=== PATIENT | male | born 1980 | race Caucasian/White ===

== ENCOUNTER 2018-01-21 06:39 | Day surgery (SDC) | payer OTHER ==
[~2018-01-21] VITALS: Ht 182.9 cm; Wt 160.0 kg
[~2018-01-21 06:39] MED LIST: AMLO10 PO; Aldactone25 MG PO; Amiodarone HCl400 MG PO; CARV25 PO; Cardizem Cd180 MG PO; DIGOX250 MCG PO; DILT120 PO; Duoneb 2.5-0.5 M3 ML INH; GUAI1200ER PO; INSU100I6; INSULANPEN SC; K-Dur20 MEQ PO; LOSA50 PO; LOSARTAN POTAS100 MG PO; Lasix40 MG PO; METF500 PO; METO100ER PO; METO50 PO; Norvasc5 MG PO; POTCHL20ER PO; Pedi-Dri 100,0060 GM TOP; SPIR25 PO; TOPROL XL200 MG PO; TORSE20 PO; Toprol Xl200 MG PO; XARELTO20 MG PO; ZESTORETIC 20-121 EA
[2018-01-21 07:58] LABS: Anion Gap 7 mmol/L (6-16); Blood Urea Nitrogen 16 mg/dL (8-24); Bun/Creatinine Ratio 17.6 (12.0-20.0); CO2, Blood 27 mmol/L (21-32); Calcium, Blood 8.1 mg/dL (8.5-10.1); Chloride, Blood 103 mmol/L (98-108); Creatinine, Blood 0.91 mg/dL (0.60-1.20); Glomerular Filtration Rate >60 (60-); Glucose, Blood 206 mg/dL (70-99); Potassium, Blood 3.7 mmol/L (3.5-5.5); Sodium, Blood 137 mmol/L (136-145)
[2018-06-23] MEDS ORDERED: SPIR25 PO (19:50)
== END 2018-01-21 22:56 | disposition home or self-care (01) ==
LOC: MHTC 06:39
PROVIDERS: Internal Medicine Clinical Cardiac Electrophysiology
PROC: 5A2204Z Restoration of Cardiac Rhythm, Single (ICD-10-PCS; principal; 2018-01-21)
DX: I48.1 Persistent atrial fibrillation (principal); I11.0 Hypertensive heart disease with heart failure; I50.9 Heart failure, unspecified; E66.01 Morbid (severe) obesity due to excess calories; Z87.891 Personal history of nicotine dependence
CPT/HCPCS: 80048; 83735; 92960; 93005; 93010; 99152; J7030

== ENCOUNTER 2018-04-27 23:12 | Emergency (ER) | payer OTHER ==
[~2018-04-27] VITALS: Ht 180.3 cm; Wt 163.3 kg
[~2018-04-27 23:12] MED LIST changes: +INSULANPEN; -INSULANPEN SC
== END 2018-04-28 01:24 | disposition home or self-care (01) ==
LOC: ER 23:12
DX: S81.812A Laceration without foreign body, left lower leg, initial encounter (principal); W25.XXXA Contact with sharp glass, initial encounter; Z79.4 Long term (current) use of insulin; Z79.899 Other long term (current) drug therapy; I48.91 Unspecified atrial fibrillation; E11.9 Type 2 diabetes mellitus without complications
CPT/HCPCS: 99282

== ENCOUNTER 2019-02-27 15:59 | Inpatient (IN) | payer OTHER ==
[~2019-02-27] VITALS: Ht 180.3 cm; Wt 174.9 kg
[~2019-02-27 15:59] MED LIST changes: -INSU100I6; +INSU100I6 SC; -INSULANPEN; +INSULANPEN SC
[2019-02-27 16:34] LABS: Source, Urine Voided
[2019-02-27 16:37] LABS: Appearance, Urine Clear (Clear); Bilirubin, Urine Neg (Neg); Blood, Urine Neg (Neg); Color, Urine Yellow (P-Yellow); Glucose Qualitative, Urine 4+ (Neg); Ketones, Urine Neg (Neg); Leukocyte Esterase, Urine Neg (Neg); Nitrite, Urine Neg (Neg); Protein, Urine 2+ (Neg); Urobilinogen, Urine NORM (Normal)
[2019-02-27 16:39] LABS: BASOPHILS ABSOLUTE AUTO 0.05 K/mm3 (0.00-0.23); BASOPHILS PERCENT AUTO 1 % (0-2); EOSINOPHILS ABSOLUTE AUTO 0.03 K/mm3 (0.00-0.68); EOSINOPHILS PERCENT AUTO 0 % (0-6); Hematocrit 43.5 % (37.0-53.0); Hemoglobin 14.6 g/dL (13.5-17.5); IMMATURE GRAN ABSOLUTE AUTO 0.05 K/mm3 (0.00-0.10); IMMATURE GRAN PERCENT AUTO 1 % (0-1); LYMPHOCYTES ABSOLUTE AUTO 1.03 K/mm3 (0.84-5.20); LYMPHOCYTES PERCENT AUTO 10 % (21-46); MONOCYTES ABSOLUTE AUTO 0.92 K/mm3 (0.16-1.47); MONOCYTES PERCENT AUTO 9 % (4-13); Mean Corpuscular HGB 31.2 pg (26.0-34.0); Mean Corpuscular HGB Conc 33.6 g/dL (31.5-36.5); Mean Corpuscular Volume 93 fL (80-100); Mean Platelet Volume 12.6 fL (9.1-12.4); NEUTROPHILS ABSOLUTE AUTO 8.23 K/mm3 (1.96-9.15); NEUTROPHILS PERCENT AUTO 80 % (41-73); Platelet Count 232 K/mm3 (150-400); RDW Coefficient Variation 13.6 % (11.7-14.2); RDW Standard Deviation 46.2 fL (35.1-46.3); Red Blood Cell Count 4.68 M/mm3 (4.30-5.90); White Blood Cell Count 10.31 K/mm3 (4.00-11.30)
[2019-02-27 16:53] LABS: Alanine Aminotransfer (ALT/SGP 44 U/L (12-78); Albumin, Blood 3.1 g/dL (3.4-5.0); Albumin/Globulin Ratio 0.7 (0.8-1.8); Alk Phos 85 U/L (50-136); Anion Gap 8 mmol/L (6-16); Aspartate Aminotrans (AST/SGOT 47 U/L (12-37); Bilirubin, Total 0.8 mg/dL (0.1-1.0); Blood Urea Nitrogen 14 mg/dL (8-24); Bun/Creatinine Ratio 15.2 (12.0-20.0); CO2, Blood 28 mmol/L (21-32); Calcium, Blood 8.1 mg/dL (8.5-10.1); Chloride, Blood 98 mmol/L (98-108); Creatinine, Blood 0.92 mg/dL (0.60-1.20); Globulin, Blood 4.4 g/dL (2.2-4.0); Glomerular Filtration Rate >60 (60-); Glucose, Blood 306 mg/dL (70-99); Potassium, Blood 4.2 mmol/L (3.5-5.5); Sodium, Blood 134 mmol/L (136-145); Total Protein, Blood 7.5 g/dL (6.4-8.2); Troponin I 0.022 ng/mL (0.000-0.040)
[2019-02-27 16:54] LABS: Bacteria Not Seen /hpf; Red Blood Cells, Urine Rare /hpf (0-2); Squamous Epithelial Cells Few /hpf (Few); White Blood Cells, Urine Not Seen /hpf (0-5)
[2019-02-27 17:50] LABS: U Amphetamine Screen Not Detected; U Barbituate Screen Not Detected; U Benzodiazapine Screen Not Detected; U Buprenorphine Screen Not Detected; U Cannabinoids Screen Not Detected; U Cocaine Screen Not Detected; U Methadone Screen Not Detected; U Methamphetamine Screen Not Detected; U Opiates Screen Not Detected; U Oxycodone Screen Not Detected; U Phencyclidine Screen Not Detected; U Propoxyphene Screen Not Detected
[2019-02-27 18:02] LABS: Influenza A Negative (NEGATIVE); Influenza B Negative (NEGATIVE)
[2019-02-27] MEDS ORDERED: ALBU3IS INH (19:12)
--- NOTE | 2019-02-27 20:55 | NUR ---
PT ARRIVAL. PT ARRIVED ON UNIT VIA GURNEY PT WAS ABLE TO SELF TRANSFER FROM [facility] TO BED. PT WAS ADMITTED DUE TO AFIB RVR, PT IS CURRENTLY ON A CARDIZEM GTT AT 10MG/HR, HIS HR IS 107 PER ATHLETIC COORDINATOR, PT DENIES ANY CHEST PAIN/PRESSURE. TELE WAS PLACED, AFIB AT 107, PT'S BP 152/110, 1+ EDEMA NOTED TO THE PT'S BLLE. PT'S L/S ARE CLEAR T/O, PT IS ON RA. BT PRESENT AND HYPERACTIVE, ABD IS SOFT AND NONTENDER TO PALP. PT IS MORBIDLY OBESE. CALL LIGHT IN REACH, BED IS LOCKED AND LOW WILL CONTINUE TO MONITOR.
[2019-02-28 07:35] LABS: Anion Gap 7 mmol/L (6-16); Blood Urea Nitrogen 14 mg/dL (8-24); CO2, Blood 29 mmol/L (21-32); Calcium, Blood 8.6 mg/dL (8.5-10.1); Chloride, Blood 99 mmol/L (98-108); Creatinine, Blood 0.94 mg/dL (0.60-1.20); Glomerular Filtration Rate >60 (60-); Glucose, Blood 176 mg/dL (70-99); Magnesium, Blood 2.3 mg/dL (1.6-2.4); Potassium, Blood 3.2 mmol/L (3.5-5.5); Sodium, Blood 135 mmol/L (136-145)
--- NOTE | 2019-02-28 07:40 | NUR ---
SHIFT SUMMARY. NO ACUTE CHANGES NOTED THIS SHIFT. PT'S VS HAVE BEEN STABLE. PT IS STILL IN AFIB IN THE 90'S-100'S, NO CARDIAC EVENTS NOTED ON TELE. PT HAS USED HIS CPAP DURING SLEEP, 2L BLEED IN WAS ADDED DUE TO HIS O2 SATS DROPPING TO THE LOW 80'S DURING SLEEP. PT CALLS APROPPRIATELY AND IS ABLE TO REPOSITION HIMSELF IN BED. CALL LIGHT IN REACH, BED IS LOCKED AND LOW WILL CONTINUE TO MONITOR UNTIL REPORT IS GIVEN TO ONCOMING RN.
--- NOTE | 2019-02-28 19:31 | NUR ---
SHIFT SUMMARY PT ALERT AND ORIENTED. VS HAVE BEEN STABLE. HR HAS BEEN AFIB WITH A RATE BETWEEN 90'S-110'S. CARDIZEM GTT WAS DISCONTINUED PER DR. SHEEHAN THIS SHIFT. O2 SATS HAVE REMAINED ABOVE 92% ON RA. PT DENIES ANY CHEST PAIN OR PRESSURE. PT EDUCATED ABOUT SIGNIFICANCE OF USING CPAP AT HOME UPON DISCHARGE. NO OTHER CHANGES THIS SHIFT. REPORT GIVEN TO MEDICAL DIRECTOR OCCUPATIONAL HEALTH RN.
--- NOTE | 2019-02-28 20:10 | NUR ---
PM NOTE. ASSUMED CARE OF PT APROX 1900, PT IS A&Ox4 AND IND/SBA IN THE ROOM, PT WAS ADMITTED FOR AFIB RVR, THE CARDIZEM GTT WAS STOPPED DURING DAY SHIFT, PT'S HR HAS REMAINED CONTROLLED IN THE 90'S-100'S, RATE DOES TACH UP WHEN PT WALKS TO THE BATHROOM, BUT IT TRENDS BACK DOWN QUICKLY. RATE HAS BEEN CONTROLLED ON ORAL MEDICATIONS. TELE INTACT, AFIB AT 106 PER STUDENT WORKER, PT'S BP 155/102, TRACE EDEMA NOTED TO THE PT'S BLLE. L/S CLEAR T/O, PT IS ON RA AT 95%, PT USES CPAP W/2L BLEED IN DURING SLEEP. BT PRESENT AND HYPERACTIVE, ABD IS SOFT AND NONTENDER TO PALP. CALL LIGHT IN REACH, BED IS LOCKED AND LOW WILL CONTINUE TO MONITOR.
[2019-03-01 03:47] LABS: Base Excess Venous 8.4 mmol/L; Bicarbonate Venous 31.5 mmol/L (24.0-30.0); PCO2 Venous 36.8 mmHg (38-42); PO2 Venous 48.8 mmHg (38-42); pH Blood Venous 7.53 (7.34-7.37)
[2019-03-01 04:04] LABS: BASOPHILS ABSOLUTE AUTO 0.05 K/mm3 (0.00-0.23); BASOPHILS PERCENT AUTO 1 % (0-2); EOSINOPHILS ABSOLUTE AUTO 0.09 K/mm3 (0.00-0.68); EOSINOPHILS PERCENT AUTO 1 % (0-6); Hematocrit 41.5 % (37.0-53.0); Hemoglobin 13.7 g/dL (13.5-17.5); IMMATURE GRAN ABSOLUTE AUTO 0.03 K/mm3 (0.00-0.10); IMMATURE GRAN PERCENT AUTO 0 % (0-1); LYMPHOCYTES ABSOLUTE AUTO 1.05 K/mm3 (0.84-5.20); LYMPHOCYTES PERCENT AUTO 13 % (21-46); MONOCYTES ABSOLUTE AUTO 0.69 K/mm3 (0.16-1.47); MONOCYTES PERCENT AUTO 9 % (4-13); Mean Corpuscular HGB 30.7 pg (26.0-34.0); Mean Corpuscular Volume 93 fL (80-100); Mean Platelet Volume 11.9 fL (9.1-12.4); NEUTROPHILS ABSOLUTE AUTO 6.07 K/mm3 (1.96-9.15); NEUTROPHILS PERCENT AUTO 76 % (41-73); Platelet Count 174 K/mm3 (150-400); RDW Coefficient Variation 13.6 % (11.7-14.2); RDW Standard Deviation 46.1 fL (35.1-46.3); Red Blood Cell Count 4.46 M/mm3 (4.30-5.90); White Blood Cell Count 7.98 K/mm3 (4.00-11.30)
[2019-03-01 04:19] LABS: Anion Gap 7 mmol/L (6-16); Blood Urea Nitrogen 15 mg/dL (8-24); Bun/Creatinine Ratio 15.9 (12.0-20.0); CO2, Blood 30 mmol/L (21-32); Calcium, Blood 8.8 mg/dL (8.5-10.1); Chloride, Blood 101 mmol/L (98-108); Creatinine, Blood 0.94 mg/dL (0.60-1.20); Glomerular Filtration Rate >60 (60-); Glucose, Blood 145 mg/dL (70-99); Magnesium, Blood 2.3 mg/dL (1.6-2.4); Potassium, Blood 3.2 mmol/L (3.5-5.5); Sodium, Blood 138 mmol/L (136-145)
--- NOTE | 2019-03-01 06:24 | NUR ---
SHIFT SUMMARY. NO ACUTE CHANGES NOTED THIS SHIFT, PT'S HR CONTINUES TO TREND UP WHEN PT IS ACTIVE, BUT IT DROPS BACK TO THE 90'S-100'S WHEN PT IS RESTING. PT IS NOT SYMPTOMATIC DURING THIS TIME. PT'S VS HAVE BEEN STABLE OTHERWISE DURING THIS SHIFT. PT HAS USED HIS CPAP DURING SLEEP ALL SHIFT. CALL LIGHT IN REACH, BED IS LOCKED AND LOW WILL CONTINUE TO MONITOR UNTIL REPORT IS GIVEN TO ON COMING RN.
--- NOTE | 2019-03-01 09:57 | NUR ---
ASSUMED CARE PT ALERT AND ORIENTED. O2 SATS >90% 0N RA. HR 110'S UPON ASSESSMENT. WHILE PT AMBULATES TO BATHROOM HR INCREASES UP TO 180. PT ASYMPTOMATIC. AFTER PT GETS BACK TO BED HR STILL REMAINS ELEVATED WITH A RANGE OF 130-160. PRN METOPROLOL GIVEN FOR HR CONTROL. WILL CONTINUE TO MONITOR CLOSELY.
--- NOTE | 2019-03-01 10:25 | NUR ---
HEART RATE CONTINUES TO BE ELEVATED IN 130'S TO 160'S AND UP TO 180'-190'S WITH EXERTION. DR. SHEEHAN CALLED AND NOTIFIED. NO NEW ORDERS AT THIS TIME. DR. SHEEHAN STATES HE WILL BE UP TO SEE PT.
--- NOTE | 2019-03-01 11:58 | NUR ---
DR. SHEEHAN IN TO SEE PT WITH NEW ORDERS.
--- NOTE | 2019-03-01 17:58 | NUR ---
SHIFT SUMMARY PT ALERT AND ORIENTED. O2 SATS HAVE REMAINED ABOVE 92% ON RA. BP STABLE. HR HAS BEEN AFIB WITH A RATE IN THE 100'S AT REST AND 130-180'S WITH EXERTION. PT ASYMPTOMATIC WITH INCREASE IN RATE. PLAN FOR ECHO TOMORROW. PT ABLE TO AMBULATE TO BATHROOM NEEDED WITH SBA. PT DENIES ANY PAIN. NO NEEDS AT THIS TIME. FAMILY AT BEDSIDE. WILL CONTINUE TO MONITOR AND REPORT TO ONCOMING RN. CALL LIGHT IN REACH.
--- NOTE | 2019-03-01 19:51 | NUR ---
PM NOTE. ASSUMED CARE OF PT APROX 1900, PT IS A&Ox4 AND IND/SBA IN THE ROOM, PT WAS ADMITTED DUE TO AFIB RVR, PT HAS BEEN ON ORAL MEDICATIONS SINCE YESTERDAY, PT'S HR TODAY INCREASED TO THE 160'S-180'S W/ACTIVITY, PT IS SCHEUDLED FOR AN ECHO IN THE AM IF HIS HR IS IN THE 120'S OR BELOW. TELE INTACT, AFIB AT 110 PER VENTILATING EXPERT, PT'S BP 140/105, TRACE EDEMA NOTED TO HIS BLLE. L/S CLEAR T/O ON RA. BT PRESENT AND HYPERACTIVE, ABD IS SOFT AND NONTENDER TO PALP. CALL LIGHT IN REACH, BED IS LOCKED AND LOW WILL CONTINUE TO MONITOR
--- NOTE | 2019-03-02 06:14 | NUR ---
SHIFT SUMMARY. NO ACUTE CHANGES NOTED THIS SHIFT, PT'S VS HAVE BEEN STABLE. PT'S HR INCREASED TO THE 160'S ONCE WHEN THE PT GOT UP AND USED THE BATHROOM TO VOID, HOWEVER, HIS HR TRENDED DOWN AFTER HE GOT BACK TO BED. PT DENIES ANY CHEST PAIN/PRESSURE, N/V AND IS SOB W/ACTIVITY. PT IS SCHEDULED FOR AN ECHO THIS AM. CALL LIGHT IN REACH, BED IS LOCKED AND LOW WILL CONTINUE TO MONITOR UNTIL REPORT IS GIVEN TO ONCOMING RN.
--- NOTE | 2019-03-02 08:57 | NUR ---
ECHOCARDIOGRAM COMPLETE
--- NOTE | 2019-03-02 15:37 | NUR ---
PATIENT GAVE PERISSION FOR STUDENT TO PROVIDE CARE FOR THEM DURING THE CLINICAL DAY SCHEDULED February.
--- NOTE | 2019-03-02 20:12 | NUR ---
SHIFT SUMMARY PT ALERT AND ORIENTED. VS HAVE BEEN STABLE. HR AFIB WITH AN INCREASE IN RATE WITH EXERTION. DR. SHEEHAN AWARE. PT ON ROOM AIR THROUGHOUT SHIFT. NO OTHER NEW CHANGES. REPORT GIVEN TO PANEL WIRER RN.
[2019-03-03 04:43] LABS: Anion Gap 5 mmol/L (6-16); Blood Urea Nitrogen 16 mg/dL (8-24); Bun/Creatinine Ratio 16.8 (12.0-20.0); CO2, Blood 30 mmol/L (21-32); Calcium, Blood 8.4 mg/dL (8.5-10.1); Chloride, Blood 104 mmol/L (98-108); Creatinine, Blood 0.95 mg/dL (0.60-1.20); Glomerular Filtration Rate >60 (60-); Glucose, Blood 129 mg/dL (70-99); Potassium, Blood 3.4 mmol/L (3.5-5.5); Sodium, Blood 139 mmol/L (136-145)
--- NOTE | 2019-03-03 05:27 | NUR ---
SUMMARY: ADMIT DAY 5 AFIB WITH RVR ON HOSPITALIST SERVICE. VSS, AFEBRILE, MAINTAINS SPO2 >92% ON ROOM AIR WHILE AND CPAP WITH 2L O2 WHILE ASLEEP. PT UP WITH SBA IN ROOM AND CONTINUES TO DENY HEADACHE, DIZZNESS, PAIN, SOB OR PALPITATIONS. ANTICIPATE DC HOME THIS DAY.
--- NOTE | 2019-03-03 07:35 | NUR ---
Bedside report received from SUDHA Pickard from sugical/pediatrics unit floated to PCU last night. The pt is sleeping at the time, apparently, in darkened room while wearing his CPAP. Karlene states that the pt has been wearing it since midnight, and she believes that he has been sleeping since that time.
[2019-03-03] MEDS ORDERED: METO50ER PO (12:56)
[2019-03-03] MEDS ORDERED: SPIR25 PO (12:57)
--- NOTE | 2019-03-03 15:46 | NUR ---
The pt was without complaints of any discomfort this morning, and was independently ambulatory to the bathroom and up in the room. Heart rate was tachycardic up to 120-150 bpm with extended activity, and returned to 90-100 range with rest. The pt was asymptomatic, however, with this activity. The pt stated that he had a CPAP machine at home, and he said that our hose and mask would work to use with his machine. Respiratory care gave him the hose and mask which he has been using. He is in contact with his insurance company in order to get the supply of durable medical equipment for his home through a different company than he has been using. Discharge instructions and prescriptions were reviewed with the patient before discharge. He was taken out for discharge to a private vehicle driven by his aunt. He states he will be staying with her for a few days.
== END 2019-03-03 14:20 | disposition home or self-care (01) | DRG 309 ==
LOC: ER 15:59 → PCU 16:00
PROVIDERS: Emergency Medicine; Internal Medicine; ADMIT Internal Medicine
DX: I48.0 Paroxysmal atrial fibrillation (principal); Z68.43 Body mass index [BMI] 50.0-59.9, adult; E66.2 Morbid (severe) obesity with alveolar hypoventilation; I42.0 Dilated cardiomyopathy; E11.9 Type 2 diabetes mellitus without complications; Z79.4 Long term (current) use of insulin; E87.6 Hypokalemia; Z91.19 Patient's noncompliance with other medical treatment and regimen
CPT/HCPCS: 36415; 71046; 80048; 80053; 81001; 82803; 82947; 83735; 83880; 84484; 85025; 87804; 93005; 93010; 94660; 94762; 96361; 96365; 96366; 99285-25; C8923; J3480; J7030; Q9957

== ENCOUNTER 2019-04-27 10:48 | Emergency (ER) | payer OTHER ==
[~2019-04-27] VITALS: Ht 180.3 cm; Wt 167.8 kg
[~2019-04-27 10:48] MED LIST changes: +ALBU3IS INH; +METO50ER PO
[2019-04-27 11:55] LABS: BASOPHILS ABSOLUTE AUTO 0.04 K/mm3 (0.00-0.23); BASOPHILS PERCENT AUTO 0 % (0-2); EOSINOPHILS ABSOLUTE AUTO 0.07 K/mm3 (0.00-0.68); EOSINOPHILS PERCENT AUTO 1 % (0-6); Hematocrit 47.1 % (37.0-53.0); Hemoglobin 16.2 g/dL (13.5-17.5); IMMATURE GRAN ABSOLUTE AUTO 0.06 K/mm3 (0.00-0.10); IMMATURE GRAN PERCENT AUTO 1 % (0-1); LYMPHOCYTES ABSOLUTE AUTO 1.29 K/mm3 (0.84-5.20); LYMPHOCYTES PERCENT AUTO 13 % (21-46); MONOCYTES ABSOLUTE AUTO 0.94 K/mm3 (0.16-1.47); MONOCYTES PERCENT AUTO 10 % (4-13); Mean Corpuscular HGB 30.3 pg (26.0-34.0); Mean Corpuscular HGB Conc 34.4 g/dL (31.5-36.5); Mean Corpuscular Volume 88 fL (80-100); Mean Platelet Volume 11.6 fL (9.1-12.4); NEUTROPHILS ABSOLUTE AUTO 7.35 K/mm3 (1.96-9.15); NEUTROPHILS PERCENT AUTO 76 % (41-73); Platelet Count 198 K/mm3 (150-400); RDW Coefficient Variation 12.9 % (11.7-14.2); RDW Standard Deviation 41.1 fL (35.1-46.3); Red Blood Cell Count 5.34 M/mm3 (4.30-5.90); White Blood Cell Count 9.75 K/mm3 (4.00-11.30)
[2019-04-27 12:21] LABS: Alanine Aminotransfer (ALT/SGP 74 U/L (12-78); Albumin, Blood 3.5 g/dL (3.4-5.0); Albumin/Globulin Ratio 0.7 (0.8-1.8); Alk Phos 88 U/L (50-136); Anion Gap 6 mmol/L (6-16); Aspartate Aminotrans (AST/SGOT 40 U/L (12-37); Bilirubin, Total 0.8 mg/dL (0.1-1.0); Blood Urea Nitrogen 13 mg/dL (8-24); Bun/Creatinine Ratio 15.6 (12.0-20.0); CO2, Blood 27 mmol/L (21-32); Calcium, Blood 8.8 mg/dL (8.5-10.1); Chloride, Blood 101 mmol/L (98-108); Creatinine, Blood 0.84 mg/dL (0.60-1.20); Globulin, Blood 4.7 g/dL (2.2-4.0); Glomerular Filtration Rate >60 (60-); Glucose, Blood 272 mg/dL (70-99); Potassium, Blood 4.3 mmol/L (3.5-5.5); Sodium, Blood 134 mmol/L (136-145); Total Protein, Blood 8.2 g/dL (6.4-8.2)
[2019-04-27] MEDS ORDERED: Augmentin 875-1 EACH PO (17:20)
[2019-04-27] MEDS ORDERED: Flonase 0.05% N16 GM (17:20)
== END 2019-04-27 17:40 | disposition home or self-care (01) ==
LOC: ER 10:48
PROVIDERS: Emergency Medicine
DX: J32.0 Chronic maxillary sinusitis (principal); I48.91 Unspecified atrial fibrillation; E11.9 Type 2 diabetes mellitus without complications; Z88.8 Allergy status to other drugs, medicaments and biological substances; Z79.4 Long term (current) use of insulin; Z79.899 Other long term (current) drug therapy
CPT/HCPCS: 36415; 70450; 80053; 85025; 93005; 93010; 99284-25

== ENCOUNTER 2019-10-06 20:08 | Inpatient (IN) | payer OTHER ==
[~2019-10-06] VITALS: Ht 180.3 cm; Wt 171.2 kg
[~2019-10-06 20:08] MED LIST changes: +Augmentin 875-1 EACH PO; +Flonase 0.05% N16 GM; -INSU100I6 SC; -INSULANPEN SC; -METO50ER PO
[2019-10-06 20:45] LABS: BASOPHILS ABSOLUTE AUTO 0.09 K/mm3 (0.00-0.23); BASOPHILS PERCENT AUTO 1 % (0-2); EOSINOPHILS ABSOLUTE AUTO 0.04 K/mm3 (0.00-0.68); EOSINOPHILS PERCENT AUTO 1 % (0-6); Hematocrit 43.9 % (37.0-53.0); Hemoglobin 15.4 g/dL (13.5-17.5); IMMATURE GRAN ABSOLUTE AUTO 0.04 K/mm3 (0.00-0.10); IMMATURE GRAN PERCENT AUTO 1 % (0-1); LYMPHOCYTES ABSOLUTE AUTO 2.18 K/mm3 (0.84-5.20); LYMPHOCYTES PERCENT AUTO 27 % (21-46); MONOCYTES ABSOLUTE AUTO 1.17 K/mm3 (0.16-1.47); MONOCYTES PERCENT AUTO 15 % (4-13); Mean Corpuscular HGB 31.7 pg (26.0-34.0); Mean Corpuscular HGB Conc 35.1 g/dL (31.5-36.5); Mean Corpuscular Volume 90 fL (80-100); Mean Platelet Volume 11.6 fL (9.1-12.4); NEUTROPHILS ABSOLUTE AUTO 4.53 K/mm3 (1.96-9.15); NEUTROPHILS PERCENT AUTO 56 % (41-73); Platelet Count 136 K/mm3 (150-400); RDW Coefficient Variation 12.6 % (11.7-14.2); RDW Standard Deviation 41.4 fL (35.1-46.3); Red Blood Cell Count 4.86 M/mm3 (4.30-5.90); White Blood Cell Count 8.05 K/mm3 (4.00-11.30)
[2019-10-06 21:00] LABS: Calcium, Ionized (POC) 1.06 mmol/L (1.10-1.46); Chloride (POC) 89 mmol/L (98-108); Creatinine (POC) 1.4 mg/dL (0.8-1.3); Glucose (ISTAT POC) 386 mg/dL (70-99); Hemoglobin (POC) 15.3 g/dL (13.5-17.5); Sodium (POC) 128 mmol/L (135-148); Total CO2 (POC) 28 mmol/L (21-32)
[2019-10-06 21:05] LABS: Alanine Aminotransfer (ALT/SGP 110 U/L (12-78); Albumin, Blood 3.4 g/dL (3.4-5.0); Albumin/Globulin Ratio 0.8 (0.8-1.8); Alk Phos 90 U/L (50-136); Anion Gap 8 mmol/L (6-16); Aspartate Aminotrans (AST/SGOT 57 U/L (12-37); Bilirubin, Total 0.6 mg/dL (0.1-1.0); Blood Urea Nitrogen 16 mg/dL (8-24); Bun/Creatinine Ratio 11.3 (12.0-20.0); CO2, Blood 29 mmol/L (21-32); Calcium, Blood 8.7 mg/dL (8.5-10.1); Chloride, Blood 91 mmol/L (98-108); Creatinine, Blood 1.41 mg/dL (0.60-1.20); Globulin, Blood 4.3 g/dL (2.2-4.0); Glomerular Filtration Rate 59 (60-); Glucose, Blood 364 mg/dL (70-99); Potassium, Blood 4.2 mmol/L (3.5-5.5); Sodium, Blood 128 mmol/L (136-145); Total Protein, Blood 7.7 g/dL (6.4-8.2); Troponin I <0.015 ng/mL (0.000-0.040)
[2019-10-06 23:39] LABS: U Amphetamine Screen Not Detected; U Barbituate Screen Not Detected; U Benzodiazapine Screen Not Detected; U Buprenorphine Screen Not Detected; U Cannabinoids Screen Not Detected; U Cocaine Screen Not Detected; U Methadone Screen Not Detected; U Methamphetamine Screen Not Detected; U Opiates Screen Not Detected; U Oxycodone Screen Not Detected; U Phencyclidine Screen Not Detected; U Propoxyphene Screen Not Detected
--- NOTE | 2019-10-06 23:52 | NUR ---
2335 PT ADMITTED TO PCU-9 PER CART FROM ER.
--- NOTE | 2019-10-07 05:28 | NUR ---
SHIFT SUMMARY: 38 Y/O OBESE MALE RESTED COMFORTABLY ALL SHIFT, CARDIZEM GTT AT 5ML/HR, HEART RATE 80, DENIES CHEST PAIN OR SOB, WEARING C/PAP THIS SHIFT, TELEMETRY REFLECTS A/FIB, ALERT AND ORIENTED X 4, BED LOW POSITION WITH CALL LIGHT AT SIDE.
--- NOTE | 2019-10-07 10:59 | NUR ---
Patient is lying in bed and alert. Patient shares about his medical issues, his nicanor traditions and his current frustration with being unemployed since . Patient mentions that prayer is encouraging for him. I listen empathically, provide pastoral counselor nurses' association, inspirational scriptures, companionship and prayer. Patient responds well and displays evidence of an elevated mood.
--- NOTE | 2019-10-07 13:04 | NUR ---
ASSUMED CARE APPROXIMATELY 0700; PT A&O X4; PT PLEASANT AND COMPLIANT W/CARE; PT USES CPAP WHEN SLEEPING; ON RA DURING WAKE TIMES, O2 SATS >94; LUNG SOUNDS CLEAR T/O PT UP TO CHAIR FOR REPOSITION DUE TO BACK PAIN IN BED AND FOR LUNCH TRAY; TO BEDSIDE MID AM; PO METOPROLOL GIVEN PER EMAR FOR AM MEDS; CARDIZEM GTT STOPPED AT 1200, HR STABILIZED IN 90'S; CALL LIGHT IN REACH; BED IN LOWEST POSITION;
--- NOTE | 2019-10-07 18:20 | NUR ---
PT UNABLE TO DISCHARGE THIS AFTERNOON DUE TO ELEVATED HR WHEN STANDING AND AMBULATING; HR 130-150; METOPORLOL IV GIVEN PER EMAR; PT A&O X4; PT ON RA O2 SATS >94; PT SITTING UP IN CHAIR TALKING ON PHONE; COMPLIANT W/ CARE; CALL LIGHT IN REACH; WILL CONTINUE TO MONITOR UNTIL HAND OFF TO NOC RN
--- NOTE | 2019-10-08 05:17 | NUR ---
0515 PATIENT HAS NOT SLEPT FOR MORE THAN AN HOUR AT A TIME T/O NIGHT. HIS AFIB HAS CLIMBED INCREMENTALLY FROM AVERAGES OF 130 TO 150. HE CURRENTLY IS IN AFIB AND TOPPED 200BPM WHILE EXHERTING HIMSELF TO HVAC LEAD HIS FALLEN URINAL. HR DECREASE BACK TO 140-150BPM AFIB. DR CUNHA CALLED, NO ANSWER.
[2019-10-08 09:03] LABS: Anion Gap 8 mmol/L (6-16); Blood Urea Nitrogen 14 mg/dL (8-24); Bun/Creatinine Ratio 12.8 (12.0-20.0); CO2, Blood 22 mmol/L (21-32); Calcium, Blood 8.1 mg/dL (8.5-10.1); Chloride, Blood 95 mmol/L (98-108); Creatinine, Blood 1.09 mg/dL (0.60-1.20); Glomerular Filtration Rate >60 (60-); Glucose, Blood 308 mg/dL (70-99); Potassium, Blood 4.4 mmol/L (3.5-5.5); Sodium, Blood 125 mmol/L (136-145)
--- NOTE | 2019-10-08 11:55 | NUR ---
ASSUMED CARE APPROXIMATELY 0700; PT A&O X4; PT SITTING IN RECLINER FOR BREAKFAST TRAY; PT APPEARS TO BE SWEATING; STATES HE DID NOT SLEEP WELL AND HAS EXPERIENCED SOME NAUSEA; PT WAS GIVEN JUAN MANUEL MIST, CRACKERS AND GIVEN COOL WASHCLOTH FOR FORHEAD; PT STATES HE BELIEVES IT IS DUE TO MEDICATION CHANGES; PT EXPRESSED FEELING IMPROVED AFTER BREAKFAST; VISITORS TO BEDSIDE LATE AM; PROVIDER NOTIFIED OF HR ELEVATED W/ ACTIVITY; LUNG SOUNDS CLEAR T/O; NO COUGH NOTED; CALL LIGHT IN REACH; WILL CONTINUE TO MONITOR AND ASSESS
--- NOTE | 2019-10-08 15:14 | NUR ---
Patient is sitting on a chair and alert. Patient immediately tells me that he had a rough night, sleepless, sweating and his "heart racing." He stated that he was "groggy" this morning but is feeling much better this afternoon. Patient stated that he has a great group of friends and he feels very supported by his religion. He mentioned also some dietary changes and better levels monitoring are important for him going forward. I listen empathically and provide companionship and prayer. Patient voices appreciation for the prayer.
--- NOTE | 2019-10-08 17:40 | NUR ---
PT A&O X4; PT CALM AND COMPLIANT W/ CARE; NUMEROUS VISITORS THROUGHOUT DAY WHICH SEEMS TO BE ENCOURAGING TO HIM; PT STATED HE HAS IMPROVED THROUGHOUT THE DAY; PT HR RANGING FROM 100-138 THIS AFTERNOON; HR ELEVATES W/ AMBULATION; PO MEDS GIVEN PER EMAR TO REGULATE HR; LUNG SOUNDS CLEAR T/O; NO COUGH NOTED; PT DENIES CHEST PAIN OR NEEDS AT THIS TIME; PT CURRENTLY RESTING IN BED; CALL LIGHT IN REACH; BED IN LOWEST POSITION; WILL CONTINUE TO MONITOR UNTIL HAND OFF TO NOC RN.
--- NOTE | 2019-10-08 19:59 | NUR ---
ASSUMED CARE - PCU NOC SHIFT PATIENT ALERT AND ORIENTED X4. PATIENT DENIES ANY PAIN. DENIES ANY RESPIRTORY ISSUES AT THIS TIME. DENIES ANY URINARY ISSURES OR PROSTATE PROBLEMS. PATIENT SAT UP IN BED FOR LUNG SOUND ASSESSMENT - CLEAR. CPAP AT BEDSIDE, PATIENT ON CONTINUOUS BIOX WITH SPO2 READING AT 95% ON ROOM AIR. PATIENT REMAINS IN AFIB 100-105 RATE PER MANAGER TARGET. PATIENT DENIES ANY WOUNDS OR SKIN ISSUES. PATIENT HAS SLIGHT TEMPERATURE, WILL MEDICATE PER EMAR. CALL LIGHT W/I REACH. WILL CONTINUE TO MONITOR.
--- NOTE | 2019-10-09 05:46 | NUR ---
CONTINUED AFIB W/ RVR AND HYPONATREMIA REPORTED TO MD CUNHA THAT PATIENT CONTINUES TO TREND UP WITH HIS AFIB W/ RVR EVEN WITH ADDITIONAL PO CARDIAC MEDICATION TITRATIONS AND ALSO IV LOPRESSOR PUSH THIS SHIFT - NO NEW ORDERS AT THIS TIME. ALSO REPORT TO MD CUNHA THAT PATIENTS SODIUM CONTINUES TO TREND DOWN - NNEW ORDERS FOR BMP LABS GIVEN.
--- NOTE | 2019-10-09 05:48 | NUR ---
PCU NOC SHIFT SUMMARY PATIENT REMAINS ALERT AND ORIENTED T/O SHIFT. PATIENT HAD A TEMP OF 100.8 AT THE BEGINNING OF SHIFT - RELIEVED WITH MEDICATION PER EMAR. PATIENT DENIES ANY PAIN T/O SHIFT. LUNG SOUNDS CLEAR AND PATIENT ON ROOM AIR - SOB W/ EXCERTION NOTED. PATIENTS HR TRENDED UP THIS SHIFT FROM 100 TO 145 RATE - IV LOPRESSOR GIVEN AND MD NOTIFIED. PATIENT DENIES ANY NEEDS AT THIS TIME. NIGEL HAS CPAP AT BEDSIDE BUT DOES NOT CHOOSE TO WEAR OFTEN. CALL LIGHT W/I REACH. WILL CONTINUE TO MONITOR AND REPORT TO DAYSHIFT RN.
[2019-10-09 06:19] LABS: Anion Gap 6 mmol/L (6-16); Blood Urea Nitrogen 11 mg/dL (8-24); Bun/Creatinine Ratio 10.1 (12.0-20.0); CO2, Blood 26 mmol/L (21-32); Calcium, Blood 8.1 mg/dL (8.5-10.1); Chloride, Blood 96 mmol/L (98-108); Creatinine, Blood 1.09 mg/dL (0.60-1.20); Glomerular Filtration Rate >60 (60-); Glucose, Blood 232 mg/dL (70-99); Potassium, Blood 4.4 mmol/L (3.5-5.5); Sodium, Blood 128 mmol/L (136-145)
--- NOTE | 2019-10-09 08:09 | NUR ---
TACHY PT TACHYCARDIC UP TO THE 190'S AT TIMES, PT ASYMPTOMATIC, VSS, DISCUSSED WITH CONTAINER WASHER MACHINE AMY, PO MEDS GIVEN, WAIT FOR HOSPITALIST TO ROUND
--- NOTE | 2019-10-09 08:48 | NUR ---
CONSULT DR SMITH MADE ROUNDS, CARDIOLOGY CONSULT CALLED, SPOKE WITH DR COLEY ON THE PHONE, PT STILL IN RAPID AFIB, ASYMPTOMATIC
--- NOTE | 2019-10-09 11:46 | NUR ---
Patient is sitting on a chair and alert. Patient tells me that he has not progressed health-s[facility]am[facility] and that he will be seeing a child nutrition manager today. Patient is in relatively good spirits today despite hearing some bad news. Patient also tells me that his living arrangements are stressful and my talk to his aunt and ask her if he could move in with her. I listen empathically, and provide pastoral genetic counsellor and prayer. Patient responds well and voices appreciation for the visit.
--- NOTE | 2019-10-09 17:46 | NUR ---
SUMMARY PT RESTING QUIETLY IN BED EATING HIS DINNER, PT HAS BEEN PLEASANT AND COOPERATIVE T/O THE DAY, INDEPENDENT IN THE ROOM, PT HAS BEEN IN AFIB WITH RVR T/O THE DAY, HIGHER RATE IN THE MORNING, RATE HAS DECREASED AFTER IV METOPROLOL, PT HAS REMAINED ASYMPTOMATIC, FRIENDS HAVE BEEN IN TO VISIT, VSS, NO ACUTE CHANGES, WILL CONT TO MONITOR
--- NOTE | 2019-10-09 17:49 | NUR ---
AMIODARONE DR COLEY SAW THE PT TWICE TODAY, WILL BE STARTING PT ON AMIODARONE BOLUS AND DRIP
--- NOTE | 2019-10-10 01:05 | NUR ---
ran at 33 for alotted time, currently running at 16.6 for 18 hours rate 0.5 vol 301, pt resting merle wilson assisted with change
--- NOTE | 2019-10-10 06:01 | NUR ---
hr sustaining above 150 with peaks of 170, called cardio patient relations coordinator, ordered digoxin 0.5 one time iv and stated that he would be in in the am to assess further, pt up taking shower awaiting for medication, continuing to monitor and treat.
--- NOTE | 2019-10-10 09:55 | NUR ---
HEART RATE TRENDING DOWN 130'S TO 1 TEEN'. AMIODARONE DRIP INFUSING.
--- NOTE | 2019-10-10 10:15 | NUR ---
PATIENT TO BE CARDIOVERTED IN A.M. BIODIESEL PLANT SUPERINTENDENT REVIEWED PROCEDURE WITH PATIENT. CONSENT AT DESK. BLOOD CONSENT SIGNED AND IN FRONT OF CHART. DENIES PAIN AT THIS TIME.
--- NOTE | 2019-10-10 16:52 | NUR ---
ALERT. ORIENTED. HAS DENIED; C.P., NAUSEA OR SOB. RESTING MOST OF DAY EITHER IN LOUNGER OR BED. UNLABORED RESPIRATIONS.TELE ON RUNNING AFIB W/RATE BETWEEN 90-130. AMIODARONE INFUSING. COOPERATIVE. PLEASANT. TO HAVE CARDIOVERTSION IN A.M. ABLE TO MAKE NEEDS KNOWN. TM
--- NOTE | 2019-10-11 03:19 | NUR ---
complained of arm pain in area where iv had been removed, red area noted and boarders marked, ice applied, will continue to monitor and treat until resolved
[2019-10-11 04:41] LABS: Anion Gap 7 mmol/L (6-16); Blood Urea Nitrogen 9 mg/dL (8-24); Bun/Creatinine Ratio 8.7 (12.0-20.0); CO2, Blood 27 mmol/L (21-32); Chloride, Blood 95 mmol/L (98-108); Creatinine, Blood 1.03 mg/dL (0.60-1.20); Glomerular Filtration Rate >60 (60-); Glucose, Blood 184 mg/dL (70-99); Potassium, Blood 3.7 mmol/L (3.5-5.5); Sodium, Blood 129 mmol/L (136-145)
--- NOTE | 2019-10-11 07:44 | NUR ---
a+o, hr climbing with activity, non symptomatic, call light in reach able to use, saline locked, bsr shared with pt and day staff, npo since midnight for 800 procedure
--- NOTE | 2019-10-11 13:24 | NUR ---
TRANSFER TO [facility]. [facility] SERVICE HERE TO TRANSPORT PT TO [facility]. BED SIDE REPORT COMPLETED WITH AMBULANCE CREW. PT TRANSFERED SELF TO [facility]. ICE WATER AND CLWEAN URINAL DENT WITH PT. CONTINUE POT.
== END 2019-10-11 13:14 | disposition short-term general hospital (02) | DRG 309 ==
LOC: ER 20:08 → ERHOLD 21:49 → PCU 10-07 00:24
PROVIDERS: Emergency Medicine; Hospitalist; Internal Medicine; Physician Assistant; ADMIT Family Medicine
PROC: 5A2204Z Restoration of Cardiac Rhythm, Single (ICD-10-PCS; principal; 2019-10-11)
DX: I48.19 Other persistent atrial fibrillation (principal); I50.22 Chronic systolic (congestive) heart failure; E87.1 Hypo-osmolality and hyponatremia; N17.9 Acute kidney failure, unspecified; Z68.43 Body mass index [BMI] 50.0-59.9, adult; E66.01 Morbid (severe) obesity due to excess calories; E11.65 Type 2 diabetes mellitus with hyperglycemia; I11.0 Hypertensive heart disease with heart failure; I42.9 Cardiomyopathy, unspecified; E86.0 Dehydration; Z79.01 Long term (current) use of anticoagulants; Z79.4 Long term (current) use of insulin; Z79.899 Other long term (current) drug therapy; Z87.891 Personal history of nicotine dependence
CPT/HCPCS: 36415; 80047; 80048; 80053; 82947; 83036; 83735; 84443; 84484; 85014; 85025; 92960; 93005; 93010; 94660; 94762; 96361; 96365; 96366; 96376; 99285-25; A9270; C8929; G0378; J0282; J1160; J1815; J2704; J7030; J7060; J7120; Q9957

== ENCOUNTER 2019-11-12 11:31 | Emergency (ER) | payer OTHER ==
[~2019-11-12] VITALS: Ht 180.3 cm; Wt 165.6 kg
[2019-11-12 11:59] LABS: BASOPHILS ABSOLUTE AUTO 0.05 K/mm3 (0.00-0.23); BASOPHILS PERCENT AUTO 1 % (0-2); EOSINOPHILS ABSOLUTE AUTO 0.06 K/mm3 (0.00-0.68); EOSINOPHILS PERCENT AUTO 1 % (0-6); Hematocrit 42.6 % (37.0-53.0); IMMATURE GRAN ABSOLUTE AUTO 0.06 K/mm3 (0.00-0.10); IMMATURE GRAN PERCENT AUTO 1 % (0-1); LYMPHOCYTES ABSOLUTE AUTO 1.53 K/mm3 (0.84-5.20); LYMPHOCYTES PERCENT AUTO 21 % (21-46); MONOCYTES ABSOLUTE AUTO 0.81 K/mm3 (0.16-1.47); MONOCYTES PERCENT AUTO 11 % (4-13); Mean Corpuscular HGB 31.7 pg (26.0-34.0); Mean Corpuscular HGB Conc 35.2 g/dL (31.5-36.5); Mean Corpuscular Volume 90 fL (80-100); Mean Platelet Volume 11.1 fL (9.1-12.4); NEUTROPHILS ABSOLUTE AUTO 4.74 K/mm3 (1.96-9.15); NEUTROPHILS PERCENT AUTO 65 % (41-73); Platelet Count 203 K/mm3 (150-400); RDW Coefficient Variation 13.3 % (11.7-14.2); RDW Standard Deviation 44.3 fL (35.1-46.3); Red Blood Cell Count 4.73 M/mm3 (4.30-5.90); White Blood Cell Count 7.25 K/mm3 (4.00-11.30)
[2019-11-12] MEDS ORDERED: XARELTO20 MG PO (12:13)
[2019-11-12] MEDS ORDERED: TORSE20 PO (12:13)
[2019-11-12] MEDS ORDERED: INSULANPEN SC (12:14)
[2019-11-12] MEDS ORDERED: Amiodarone HCl200 MG PO (12:15)
[2019-11-12] MEDS ORDERED: CARV25 PO (12:15)
[2019-11-12] MEDS ORDERED: Humalog100 UNIT/3 SC (12:15)
[2019-11-12 12:26] LABS: Alanine Aminotransfer (ALT/SGP 155 U/L (12-78); Albumin, Blood 3.4 g/dL (3.4-5.0); Albumin/Globulin Ratio 0.8 (0.8-1.8); Alk Phos 83 U/L (50-136); Anion Gap 7 mmol/L (6-16); Aspartate Aminotrans (AST/SGOT 85 U/L (12-37); Bilirubin, Total 0.7 mg/dL (0.1-1.0); Blood Urea Nitrogen 23 mg/dL (8-24); Bun/Creatinine Ratio 24.9 (12.0-20.0); CO2, Blood 24 mmol/L (21-32); Calcium, Blood 9.7 mg/dL (8.5-10.1); Chloride, Blood 99 mmol/L (98-108); Creatinine, Blood 0.92 mg/dL (0.60-1.20); Globulin, Blood 4.3 g/dL (2.2-4.0); Glomerular Filtration Rate >60 (60-); Glucose, Blood 322 mg/dL (70-99); Potassium, Blood 4.3 mmol/L (3.5-5.5); Sodium, Blood 130 mmol/L (136-145); Total Protein, Blood 7.7 g/dL (6.4-8.2); Troponin I <0.015 ng/mL (0.000-0.040)
[2019-11-12] MEDS ORDERED: Spironolactone100 MG PO (12:30)
[2019-11-12] MEDS ORDERED: LOSARTAN POTAS100 MG PO (12:30)
== END 2019-11-12 14:24 | disposition home or self-care (01) ==
LOC: ER 11:31
PROVIDERS: Emergency Medicine
DX: R55 Syncope and collapse (principal); I48.91 Unspecified atrial fibrillation; I42.0 Dilated cardiomyopathy; Z91.14 Patient's other noncompliance with medication regimen; I11.0 Hypertensive heart disease with heart failure; I50.9 Heart failure, unspecified; E11.65 Type 2 diabetes mellitus with hyperglycemia; G47.30 Sleep apnea, unspecified; Z79.4 Long term (current) use of insulin
CPT/HCPCS: 71045; 80053; 83880; 84484; 85025; 93005; 93010; 93225; 93226; 99284-25

== ENCOUNTER 2021-02-19 18:00 | Observation (INO) | payer OTHER ==
[~2021-02-19] VITALS: Ht 180.3 cm; Wt 77.5 kg
[~2021-02-19 18:00] MED LIST changes: +Amiodarone HCl200 MG PO
[2021-02-19] MEDS ORDERED: GABA100 PO (18:16)
[2021-02-19 18:33] LABS: BASOPHILS ABSOLUTE AUTO 0.06 K/mm3 (0.00-0.23); BASOPHILS PERCENT AUTO 1 % (0-2); EOSINOPHILS ABSOLUTE AUTO 0.05 K/mm3 (0.00-0.68); EOSINOPHILS PERCENT AUTO 1 % (0-6); Hematocrit 44.8 % (37.0-53.0); Hemoglobin 15.7 g/dL (13.5-17.5); IMMATURE GRAN ABSOLUTE AUTO 0.04 K/mm3 (0.00-0.10); IMMATURE GRAN PERCENT AUTO 0 % (0-1); LYMPHOCYTES ABSOLUTE AUTO 1.64 K/mm3 (0.84-5.20); LYMPHOCYTES PERCENT AUTO 16 % (21-46); MONOCYTES ABSOLUTE AUTO 0.99 K/mm3 (0.16-1.47); MONOCYTES PERCENT AUTO 10 % (4-13); Mean Corpuscular HGB 31.1 pg (26.0-34.0); Mean Corpuscular Volume 89 fL (80-100); Mean Platelet Volume 11.7 fL (9.1-12.4); NEUTROPHILS ABSOLUTE AUTO 7.25 K/mm3 (1.96-9.15); NEUTROPHILS PERCENT AUTO 72 % (41-73); Platelet Count 210 K/mm3 (150-400); RDW Coefficient Variation 13.3 % (11.7-14.2); RDW Standard Deviation 42.9 fL (35.1-46.3); Red Blood Cell Count 5.05 M/mm3 (4.30-5.90); White Blood Cell Count 10.03 K/mm3 (4.00-11.30)
[2021-02-19 18:54] LABS: Alanine Aminotransfer (ALT/SGP 70 U/L (12-78); Albumin, Blood 3.4 g/dL (3.4-5.0); Albumin/Globulin Ratio 0.8 (0.8-1.8); Alk Phos 79 U/L (50-136); Anion Gap 7 mmol/L (6-16); Aspartate Aminotrans (AST/SGOT 69 U/L (12-37); Blood Urea Nitrogen 19 mg/dL (8-24); Bun/Creatinine Ratio 20.3 (12.0-20.0); CO2, Blood 26 mmol/L (21-32); Chloride, Blood 102 mmol/L (98-108); Creatinine, Blood 0.94 mg/dL (0.60-1.20); Globulin, Blood 4.3 g/dL (2.2-4.0); Glomerular Filtration Rate >60 (60-); Glucose, Blood 242 mg/dL (70-99); Magnesium, Blood 1.6 mg/dL (1.6-2.4); Potassium, Blood 3.7 mmol/L (3.5-5.5); Sodium, Blood 135 mmol/L (136-145); Total Protein, Blood 7.7 g/dL (6.4-8.2)
[2021-02-19] MEDS ORDERED: CARV25 PO (20:14)
[2021-02-19] MEDS ORDERED: BASAGLAR K100 UNIT/8 SC (20:14)
[2021-02-19] MEDS ORDERED: TORSE20 PO (20:14)
[2021-02-19] MEDS ORDERED: XARELTO20 MG PO (20:15)
[2021-02-19] MEDS ORDERED: LOSARTAN POTAS100 MG PO (20:15)
[2021-02-19] MEDS ORDERED: ATORVASTATIN CA20 MG PO (20:16)
[2021-02-19] MEDS ORDERED: NOVOLOG100 UNIT/2 SC (20:16)
[2021-02-19] MEDS ORDERED: GABA300 PO (20:17)
[2021-02-19] MEDS ORDERED: SPIR25 PO (20:17)
[2021-02-19] MEDS ORDERED: DILT120 PO (20:17)
[2021-02-20 03:59] LABS: BASOPHILS ABSOLUTE AUTO 0.04 K/mm3 (0.00-0.23); BASOPHILS PERCENT AUTO 1 % (0-2); EOSINOPHILS ABSOLUTE AUTO 0.05 K/mm3 (0.00-0.68); EOSINOPHILS PERCENT AUTO 1 % (0-6); Hematocrit 41.2 % (37.0-53.0); Hemoglobin 14.4 g/dL (13.5-17.5); IMMATURE GRAN ABSOLUTE AUTO 0.02 K/mm3 (0.00-0.10); IMMATURE GRAN PERCENT AUTO 0 % (0-1); LYMPHOCYTES ABSOLUTE AUTO 1.33 K/mm3 (0.84-5.20); LYMPHOCYTES PERCENT AUTO 18 % (21-46); MONOCYTES ABSOLUTE AUTO 0.84 K/mm3 (0.16-1.47); MONOCYTES PERCENT AUTO 11 % (4-13); Mean Corpuscular HGB 31.2 pg (26.0-34.0); Mean Corpuscular Volume 89 fL (80-100); Mean Platelet Volume 11.2 fL (9.1-12.4); NEUTROPHILS ABSOLUTE AUTO 5.21 K/mm3 (1.96-9.15); NEUTROPHILS PERCENT AUTO 70 % (41-73); Platelet Count 157 K/mm3 (150-400); RDW Coefficient Variation 13.5 % (11.7-14.2); RDW Standard Deviation 43.8 fL (35.1-46.3); Red Blood Cell Count 4.61 M/mm3 (4.30-5.90); White Blood Cell Count 7.49 K/mm3 (4.00-11.30)
[2021-02-20 04:34] LABS: Alanine Aminotransfer (ALT/SGP 56 U/L (12-78); Albumin, Blood 2.9 g/dL (3.4-5.0); Albumin/Globulin Ratio 0.8 (0.8-1.8); Alk Phos 67 U/L (50-136); Anion Gap 5 mmol/L (6-16); Aspartate Aminotrans (AST/SGOT 40 U/L (12-37); Bilirubin, Total 0.6 mg/dL (0.1-1.0); Blood Urea Nitrogen 16 mg/dL (8-24); CO2, Blood 27 mmol/L (21-32); Calcium, Blood 8.5 mg/dL (8.5-10.1); Chloride, Blood 106 mmol/L (98-108); Creatinine, Blood 0.76 mg/dL (0.60-1.20); Digoxin (Lanoxin) 0.85 ug/mL (0.80-2.00); Globulin, Blood 3.7 g/dL (2.2-4.0); Glomerular Filtration Rate >60 (60-); Glucose, Blood 140 mg/dL (70-99); Magnesium, Blood 2.1 mg/dL (1.6-2.4); Potassium, Blood 3.6 mmol/L (3.5-5.5); Sodium, Blood 138 mmol/L (136-145); Thyroid Stimulating Hormone 0.457 uIU/mL (0.360-4.800); Total Protein, Blood 6.6 g/dL (6.4-8.2)
--- NOTE | 2021-02-20 06:15 | NUR ---
SHIFT SUMMARY PT ARRIVED TO THE UNIT AROUND 2049. PT WAS ALERT AND ORIENTED X4. PT STATED MILD CHEST PAIN HE SAID WAS FROM THE PREVIOUS SHOCKS HE HAD FROM HIS ICD. PRN TYLENOL TO CONTROL PAIN. VITALS WERE STABLE. BP 140-150'S. HR WAS 120'S ON ARRIVAL, DOWN TO 80'S BY AM. O2 SATS >90% ON ROOM AIR, PT ON CPAP WHEN SLEEPING. PT ABLE TO STAND AND TRANSFER FROM ER BED TO ROOM BED AND USED URINAL T/O THE NIGHT. PT HAD A QUIET UNEVENTFUL NIGHT WITH HIS AFIB RATE CONTROLLED IN THE 80-90'S.
[2021-02-20] MEDS ORDERED: DIGOX250 MCG PO (10:12)
[2021-02-20] MEDS ORDERED: POTA10T PO (10:12)
--- NOTE | 2021-02-20 10:50 | NUR ---
DISCHARGE DISCHARGE INSTRUCTIONS PROVIDED TO PT. PT EDUCATED ON NEW MEDICATOINS. ALL QUESTIONS ANSWERED. PT AWAITING RIDE AND WILL BE TAKEN OUT BY WC
== END 2021-02-20 11:14 | disposition home or self-care (01) ==
LOC: ER 18:00 → PCU 18:01
PROVIDERS: Emergency Medicine; ADMIT Internal Medicine
DX: I48.21 Permanent atrial fibrillation (principal); I50.22 Chronic systolic (congestive) heart failure; E11.42 Type 2 diabetes mellitus with diabetic polyneuropathy; I11.0 Hypertensive heart disease with heart failure; K21.9 Gastro-esophageal reflux disease without esophagitis; E78.5 Hyperlipidemia, unspecified; I42.9 Cardiomyopathy, unspecified; G47.33 Obstructive sleep apnea (adult) (pediatric); E66.01 Morbid (severe) obesity due to excess calories; Z95.810 Presence of automatic (implantable) cardiac defibrillator; Z99.89 Dependence on other enabling machines and devices; Z79.01 Long term (current) use of anticoagulants; Z79.4 Long term (current) use of insulin; Z88.8 Allergy status to other drugs, medicaments and biological substances; Z68.43 Body mass index [BMI] 50.0-59.9, adult
CPT/HCPCS: 36415; 71045; 80053; 80162; 82947; 83735; 83880; 84443; 85025; 93005; 93010; 94660; 94762; 96376; 99285-25; A9270; G0378; J1160; J3475

== ENCOUNTER → 2021-03-06 | Outpatient (CLI) | payer OTHER ==
[~2021-03-06] MED LIST changes: +ATORVASTATIN CA20 MG PO; +BASAGLAR K100 UNIT/8 SC; +GABA100 PO; +GABA300 PO; +NOVOLOG100 UNIT/2 SC; +POTA10T PO
== END ==
LOC: LAB SHORT 14:50 → PLD 14:50
DX: B35.1 Tinea unguium (principal); L60.2 Onychogryphosis
CPT/HCPCS: 88305; 88312

== ENCOUNTER → 2022-08-24 | Outpatient (CLI) | payer OTHER ==
[2022-08-25 16:00] LABS: Creatinine Urine 49.7 mg/dL (27.00-270.00)
== END | disposition home or self-care (01) ==
LOC: LAB SHORT 12:00 → LAB 12:00
PROVIDERS: Internal Medicine Endocrinology, Diabetes & Metabolism
DX: E66.01 Morbid (severe) obesity due to excess calories (principal)
CPT/HCPCS: 81050; 82530; 82570

== ENCOUNTER → 2022-11-09 | Outpatient (CLI) | payer OTHER | END | disposition home or self-care (01) | LOC: LAB SHORT 14:55 → LAB 14:55 | DX: C49.9 Malignant neoplasm of connective and soft tissue, unspecified (principal); R22.30 Localized swelling, mass and lump, unspecified upper limb | CPT/HCPCS: 88305 ==

== ENCOUNTER 2023-01-16 08:51 | Day surgery (SDC) | payer OTHER ==
[~2023-01-16] VITALS: Ht 180.3 cm; Wt 167.0 kg
[~2023-01-16 08:51] MED LIST changes: +PERIDEX15 ML TOP; +STEGLATRO15 MG PO
--- NOTE | 2023-01-16 10:32 | NUR ---
Patient up to Ambulate independently. Gait steady. Surgical site prepped with 2% Chlorhexidine cloth wipe. History, Chart, Medications and Allergies reviewed before start of procedure.Patient confirms NPO status and agrees with scheduled surgery. Patient reports completing Chlorhexadine shower X2 prior to admission to hospital.Patient States Post-Procedure ride home has been arranged. Defibrilator turned off by heart center in pre-op. PACU notified of need to contact them to reestablish.
--- NOTE | 2023-01-16 18:04 | NUR ---
SHIFT SUMMARY: POD 0 RIGHT SHOULDER LIPOMA REMOVAL PATIENT IS A&OX4. VS ARE WNL AND IS ON RA. PATIENT REPORTS 2/10 PAIN ON THE RIGHT SHOULDER. PATIENT WAS GIVEN PO NORCO FOR PAIN. RIGHT SHOULDER HAS A BERNADETTE AND OSMAR DRAIN WITH RED OUTPUT AND BULB COMPRESSED. BOTH ARE C/D/I. HIS RIGHT ARM IS IN A SLING. DENIES NUMBNESS OR TINGLING IN ALL EXTREMITIES. HE CAN MOVE ALL FINGERS AND TOES. HE IS TOLERATING PO INTAKE AND HAS VOIDED. HE IS SITTING UP IN THE CHAIR EATING DINNER WITH CALL LIGHT IN REACH.
[2023-01-17 04:29] LABS: BASOPHILS ABSOLUTE AUTO 0.03 K/mm3 (0.00-0.23); BASOPHILS PERCENT AUTO 0 % (0-2); EOSINOPHILS ABSOLUTE AUTO 0.02 K/mm3 (0.00-0.68); EOSINOPHILS PERCENT AUTO 0 % (0-6); Hematocrit 45.2 % (37.0-53.0); Hemoglobin 16.1 g/dL (13.5-17.5); IMMATURE GRAN ABSOLUTE AUTO 0.06 K/mm3 (0.00-0.10); IMMATURE GRAN PERCENT AUTO 1 % (0-1); LYMPHOCYTES ABSOLUTE AUTO 1.19 K/mm3 (0.84-5.20); LYMPHOCYTES PERCENT AUTO 9 % (21-46); MONOCYTES ABSOLUTE AUTO 1.04 K/mm3 (0.16-1.47); MONOCYTES PERCENT AUTO 8 % (4-13); Mean Corpuscular HGB 31.2 pg (26.0-34.0); Mean Corpuscular HGB Conc 35.6 g/dL (31.5-36.5); Mean Corpuscular Volume 88 fL (80-100); Mean Platelet Volume 10.6 fL (9.1-12.4); NEUTROPHILS ABSOLUTE AUTO 10.44 K/mm3 (1.96-9.15); NEUTROPHILS PERCENT AUTO 82 % (41-73); Platelet Count 180 K/mm3 (150-400); RDW Coefficient Variation 12.9 % (11.7-14.2); RDW Standard Deviation 41.6 fL (35.1-46.3); Red Blood Cell Count 5.16 M/mm3 (4.30-5.90); White Blood Cell Count 12.78 K/mm3 (4.00-11.30)
--- NOTE | 2023-01-17 04:37 | NUR ---
SHIFT SUMMARY: POD 1 EXCISION OF RIGHT SHOULDER LIPOMA. BERNADETTE REMAINS C/D/I ON RIGHT SHOULDER. OSMAR DRAIN CONTINUOUS TO HAVE MODERATE RED OUTPUT. PAIN WELL MANAGED PER EMAR ORDERS. PT RESTED COMFORTABLY T/O THE NIGHT. R ARM REMAINS IN SLING WITH CORRIE WRAP. C/O SLIGHT TINGLING IN R HAND AT THE BEGINNING OF SHIFT THAT HAS SINCE RESOLVED. REPORTED FULL SENSATION IN R HAND. EATING, DRINKING, VOIDING. RESTING WITH CALL LIGHT IN REACH. VSS. WILL GIVE REPORT TO DAY TIME RN.
[2023-01-17 04:47] LABS: Bun/Creatinine Ratio 24.6 (12.0-20.0); Calcium, Blood 8.8 mg/dL (8.5-10.1); Creatinine, Blood 0.65 mg/dL (0.60-1.20); Potassium, Blood 3.9 mmol/L (3.5-5.5)
[2023-01-17] MEDS ORDERED: HYDR1TAB94 PO (08:17)
--- NOTE | 2023-01-17 10:00 | NUR ---
DISCHARGE SUMMARY PT A&OX4, VSS/RA, HORACE PO, VOIDING WELL, PAIN MANAGED, AMB IND/DRESSED SELF, IV DC'D. DC INS PROVIDED. PT REP UNDERSTANDING THOSE INSTRUCTIONS INCLUDING HOW TO EMPTY AND RECORD OSMAR DRAIN, HOW TO CHECK FOR BERNADETTE DRESSING WNL, WHEN TO CALL THE SURGEON, RESTART XARELTO ON FRIDAY 01/19, RUE WBAT/WEAR SLING FOR COMFORT. LEFT FLOOR VIA WC TO GO HOME WITH UNCLE, WITH ALL PERSONAL POSSESSIONS INCLUDING DC PACKET, 1 NARC SCRIPT, HIS OWN CPAP.
[2023-01-21 08:55] LABS: Performing Lab SYMBIODX; Test Name MDM2 FISH
== END 2023-01-17 09:54 | disposition home or self-care (01) ==
LOC: ORSCMMR 08:51 → ORD 10:30 → SURS 14:57 → ORSCMMR 01-17 09:54
PROVIDERS: Pathology Clinical Pathology/Laboratory Medicine; Surgery
PROC: 0JBD0ZX Excision of Right Upper Arm Subcutaneous Tissue and Fascia, Open Approach, Diagnostic (ICD-10-PCS; principal; 2023-01-16 10:30)
DX: D17.21 Benign lipomatous neoplasm of skin and subcutaneous tissue of right arm (principal); M79.89 Other specified soft tissue disorders; I10 Essential (primary) hypertension; I50.9 Heart failure, unspecified; I48.91 Unspecified atrial fibrillation; Z79.01 Long term (current) use of anticoagulants; K76.0 Fatty (change of) liver, not elsewhere classified; E66.01 Morbid (severe) obesity due to excess calories; Z68.43 Body mass index [BMI] 50.0-59.9, adult; E11.9 Type 2 diabetes mellitus without complications; Z79.4 Long term (current) use of insulin; Z79.899 Other long term (current) drug therapy
CPT/HCPCS: 36415; 80048; 82947; 83036; 83880; 85025; 88304; 93287; A9270; J0690; J1100; J1815; J1885; J2250; J2370; J2405; J2704; J2765; J2795; J3010; J7120

== ENCOUNTER → 2025-01-13 | Outpatient (CLI) | payer OTHER ==
[~2025-01-13] MED LIST changes: +HYDR1TAB94 PO
[2025-01-13 15:56] LABS: BASOPHILS ABSOLUTE AUTO 0.06 K/mm3 (0.00-0.23); BASOPHILS PERCENT AUTO 1 % (0-2); EOSINOPHILS ABSOLUTE AUTO 0.05 K/mm3 (0.00-0.68); EOSINOPHILS PERCENT AUTO 1 % (0-6); Hemoglobin 16.9 g/dL (13.5-17.5); IMMATURE GRAN ABSOLUTE AUTO 0.05 K/mm3 (0.00-0.10); IMMATURE GRAN PERCENT AUTO 1 % (0-1); LYMPHOCYTES ABSOLUTE AUTO 0.81 K/mm3 (0.84-5.20); LYMPHOCYTES PERCENT AUTO 11 % (21-46); MONOCYTES ABSOLUTE AUTO 0.78 K/mm3 (0.16-1.47); MONOCYTES PERCENT AUTO 11 % (4-13); Mean Corpuscular HGB 32.1 pg (26.0-34.0); Mean Corpuscular HGB Conc 35.2 g/dL (31.5-36.5); Mean Corpuscular Volume 91 fL (80-100); Mean Platelet Volume 11.4 fL (9.1-12.4); NEUTROPHILS ABSOLUTE AUTO 5.39 K/mm3 (1.96-9.15); NEUTROPHILS PERCENT AUTO 76 % (41-73); Platelet Count 148 K/mm3 (150-400); RDW Coefficient Variation 13.8 % (11.7-14.2); RDW Standard Deviation 46.3 fL (35.1-46.3); Red Blood Cell Count 5.27 M/mm3 (4.30-5.90); White Blood Cell Count 7.14 K/mm3 (4.00-11.30)
[2025-01-13 16:20] LABS: Albumin, Blood 3.3 g/dL (3.4-5.0); Albumin/Globulin Ratio 0.8 (0.8-1.8); Bilirubin, Total 0.5 mg/dL (0.1-1.0); Bun/Creatinine Ratio 27.1 (12.0-20.0); Calcium, Blood 8.9 mg/dL (8.5-10.1); Creatinine, Blood 0.74 mg/dL (0.60-1.20); Globulin, Blood 4.2 g/dL (2.2-4.0); Potassium, Blood 4.2 mmol/L (3.5-5.5); Total Protein, Blood 7.5 g/dL (6.4-8.2)
[2025-01-14 16:23] LABS: HEPATITIS C AB CIA INTERP Negative (Negative); HEPATITIS C ANTIBODY CIA INDEX 0.04 IV
[2025-01-14 17:39] LABS: HIV 1,2 COMBO ANTIGEN/ANTIBODY Negative (Negative)
== END ==
LOC: LAB SHORT 14:41 → LAB 14:41
PROVIDERS: Family Medicine
DX: E11.65 Type 2 diabetes mellitus with hyperglycemia (principal); Z11.4 Encounter for screening for human immunodeficiency virus [HIV]; Z11.59 Encounter for screening for other viral diseases
CPT/HCPCS: 80053; 85025; 86803; 87389

== ENCOUNTER → 2025-11-03 | Outpatient (CLI) | payer OTHER ==
[2025-11-03 19:47] LABS: Alanine Aminotransfer (ALT/SGP 72.0 U/L (12-78); Albumin, Blood 3.7 g/dL (3.4-5.0); Albumin/Globulin Ratio 0.8 (0.8-1.8); Anion Gap 6.0 mmol/L (3-11); Aspartate Aminotrans (AST/SGOT 48.0 U/L (12-37); Bilirubin, Total 0.9 mg/dL (0.1-1.0); Blood Urea Nitrogen 16.0 mg/dL (8-24); CO2, Blood 29.0 mmol/L (21-32); Calcium, Blood 8.6 mg/dL (8.5-10.1); Chloride, Blood 101.0 mmol/L (98-108); Creatinine, Blood 0.77 mg/dL (0.60-1.20); Globulin, Blood 4.5 g/dL (2.2-4.0); Glucose, Blood 218.0 mg/dL (70-99); Potassium, Blood 4.0 mmol/L (3.5-5.5); Sodium, Blood 132.0 mmol/L (136-145); Total Protein, Blood 8.2 g/dL (6.4-8.2)
== END ==
LOC: LAB 17:36 → LAB SHORT 17:36
PROVIDERS: Family Medicine
DX: I50.22 Chronic systolic (congestive) heart failure (principal)
CPT/HCPCS: 80053; 83880